=== PATIENT | male | born 1960 | race Two or more races ===

== ENCOUNTER 2024-04-13 18:56 | Inpatient (IN) | payer MEDICARE, OTHER ==
[~2024-04-13] VITALS: Ht 190.5 cm; Wt 88.5 kg
[2024-04-13 22:40] LABS: APPEARANCE,URINE CLEAR (CLEAR); BILIRUBIN,URINE 1+ (NEGATIVE); BLOOD, URINE TRACE-INTA Ery/uL (NEGATIVE); COLOR,URINE YELLOW (YELLOW); KETONES,URINE 1+ mg/dL (NEGATIVE); LEUKOCYTE ESTERASE ,URINE 1+ (NEGATIVE); NITRITE, URINE NEGATIVE (NEGATIVE); PH,URINE 5.5 (5.0-8.0); PROTEIN,URINE TRACE mg/dl (NEGATIVE); UGLUCOSE NEGATIVE (NEGATIVE)
[2024-04-13 22:45] LABS: BASOPHILS # (AUTO) 0.1 K/uL (0.0-0.2); BASOPHILS % (AUTO) 0.9 % (0.0-2.0); EOSINOPHILS # (AUTO) 0.1 K/uL (0.0-0.7); EOSINOPHILS % (AUTO) 0.7 % (0.0-6.0); HEMATOCRIT 44 % (39-51); HEMOGLOBIN 14.9 g/dL (13.5-17.5); LYMPHOCYTES # (AUTO) 3.5 K/uL (0.8-4.8); LYMPHOCYTES % (AUTO) 26.8 % (20.0-44.0); MEAN CORPUSCULAR HEMOGLOBIN 31 PG (26.0-33.0); MEAN CORPUSCULAR HGB CONC 34 g/dl (31.0-36.0); MEAN CORPUSCULAR VOLUME 92 fL (80-96); MONOCYTES # (AUTO) 1.9 K/uL (0.1-1.30); MONOCYTES % (AUTO) 14.7 % (2.0-12.0); NEUTROPHILS # (AUTO) 7.4 K/uL (1.8-8.9); NEUTROPHILS % (AUTO) 56.9 % (43.0-81.0); PLATELET COUNT (AUTO) 219 K/uL (150-450); RED BLOOD CELL COUNT(AUTO) 4.81 MIL/uL (4.5-6.0); RED CELL DISTRIBUTION WIDTH 14.1 % (11.5-15.0)
[2024-04-13 22:47] LABS: ALANINE AMINOTRANSFERASE 39 U/L (12-78); ALBUMIN 3.1 g/dL (3.4-5.0); ALCOHOL, BLOOD < 3 mg/dL (0-10); ALKALINE PHOSPHATASE 49 U/L (46-116); ASPARTATE AMINOTRANSFERASE 36 U/L (15-37); BILIRUBIN,TOTAL 0.7 mg/dL (0.2-1.0); CALCIUM, SERUM 9.2 mg/dL (8.5-10.1); CARBON DIOXIDE 27 mmol/L (21-32); CHLORIDE 97 mmol/L (98-107); GLUCOSE 124 mg/dL (74-106); POTASSIUM 4.2 mmol/L (3.5-5.1); SODIUM SERUM 136 mmol/L (136-145); TOTAL PROTEIN, SERUM 7.8 g/dL (6.4-8.2); UREA NITROGEN, BLOOD 23 mg/dL (7-18)
[2024-04-13 22:49] LABS: AMPHETAMINE, URINE NEGATIVE (NEGATIVE); BARBITURATE, URINE NEGATIVE (NEGATIVE); BENZODIAZEPINE, URINE NEGATIVE (NEGATIVE); CANNABINOID, URINE NEGATIVE (NEGATIVE); COCCAINE, URINE NEGATIVE (NEGATIVE); OPIATE, URINE NEGATIVE (NEGATIVE); PHENCYCLIDINE SCREEN,URINE NEGATIVE (NEGATIVE)
[2024-04-13 22:58] LABS: ACETAMINOPHEN <10 ug/ml (10-30); SALICYLATE 0.7 mg/dL (2.8-20.0)
[2024-04-13 23:37] LABS: LYMPHOCYTES % (MANUAL) 33 % (16-48); MONOCYTES % (MANUAL) 12 % (0-11.0); NEUTROPHILS % (MANUAL) 55 (42-76); PLATELET ESTIMATE ADEQUATE
[2024-04-13 23:55] LABS: ADD URINE CULTURE YES; BACTERIA,URINE None seen /HPF (None Seen)
[2024-04-13 23:56] LABS: MUCUS,URINE Few /LPF (None Seen); SQUAMOUS EPITHELIAL CELL,UR None Seen /HPF (None Seen)
[2024-04-14] MEDS ORDERED: SENN-301 PO (02:07)
[2024-04-14] MEDS ORDERED: BISA-79 PO (02:07)
[2024-04-14] MEDS ORDERED: ALBU2.5V13 NEB (02:07)
[2024-04-14] MEDS ORDERED: ACET-3117 PO (02:07)
[2024-04-14] MEDS ORDERED: DIVA500T2 PO (02:07)
[2024-04-14] MEDS ORDERED: MAGN200T5 PO (02:07)
[2024-04-14] MEDS ORDERED: MINE133E RC (02:07)
[2024-04-14] MEDS ORDERED: POLY119P PO (02:07)
[2024-04-14] MEDS ORDERED: PANT40TA49 PO (02:07)
[2024-04-14] MEDS ORDERED: METO50TA16 PO (02:07)
[2024-04-14] MEDS ORDERED: B-CO1TAB PO (02:07)
[2024-04-14] MEDS ORDERED: ATOR10TA PO (02:07)
[2024-04-14] MEDS ORDERED: MAG355OR18 PO (02:07)
[2024-04-14] MEDS ORDERED: CHOL400T11 PO (02:07)
[2024-04-14] MEDS ORDERED: HALO100A2 IM (02:07)
[2024-04-14] MEDS ORDERED: LOSA1TAB36 PO (02:07)
[2024-04-14] MEDS ORDERED: CETI10CA8 PO (02:07)
[2024-04-14] MEDS ORDERED: MAGN400O21 PO (02:07)
[2024-04-14 04:00] VITALS: BP 109/63; TEMP 98.5; O2SAT 100
[2024-04-14] MEDS ORDERED: QUETIAPINE FUMARATE 25 MG TABLET PO PRN (04:30)
[2024-04-14] MEDS ORDERED: MAG HYDROX/AL HYDROX/SIMETH 30 ML UDC PO PRN (04:30)
[2024-04-14] MEDS ORDERED: B CO1TAB6 PO (05:13)
[2024-04-14] MEDS: BLOOD SUGAR DIAGNOSTIC 1 EACH STRIP IN ONE (05:20)
[2024-04-14 08:00] VITALS: BP 130/82; TEMP 98; O2SAT 100
[2024-04-14] MEDS ORDERED: CHOL100043 PO (08:16)
[2024-04-14] MEDS ORDERED: ALBUTEROL FS 2.5 MG/0.5 ML VIAL.NEB NEB PRN (11:30)
[2024-04-14 16:00] VITALS: BP 137/96; TEMP 98; O2SAT 98
[2024-04-14] MEDS: METOPROLOL TARTRATE 50 MG TABLET PO SCH (16:26)
[2024-04-14 20:00] VITALS: BP 128/79; TEMP 98.1; O2SAT 99
[2024-04-14] MEDS: ATORVASTATIN 10 MG TABLET PO SCH (21:30)
[2024-04-14] MEDS: SENNOSIDES/DOCUSATE SODIUM 1 UDTAB TABLET PO SCH (21:30)
[2024-04-15 07:29] LABS: BASOPHILS # (AUTO) 0.1 K/uL (0.0-0.2); BASOPHILS % (AUTO) 0.7 % (0.0-2.0); EOSINOPHILS # (AUTO) 0.3 K/uL (0.0-0.7); EOSINOPHILS % (AUTO) 3.8 % (0.0-6.0); HEMATOCRIT 42 % (39-51); HEMOGLOBIN 14.1 g/dL (13.5-17.5); LYMPHOCYTES # (AUTO) 2.3 K/uL (0.8-4.8); LYMPHOCYTES % (AUTO) 29.5 % (20.0-44.0); MEAN CORPUSCULAR HEMOGLOBIN 31 PG (26.0-33.0); MEAN CORPUSCULAR HGB CONC 34 g/dl (31.0-36.0); MEAN CORPUSCULAR VOLUME 92 fL (80-96); MONOCYTES # (AUTO) 1.3 K/uL (0.1-1.30); MONOCYTES % (AUTO) 16.5 % (2.0-12.0); NEUTROPHILS # (AUTO) 3.8 K/uL (1.8-8.9); NEUTROPHILS % (AUTO) 49.5 % (43.0-81.0); PLATELET COUNT (AUTO) 203 K/uL (150-450); RED BLOOD CELL COUNT(AUTO) 4.57 MIL/uL (4.5-6.0); RED CELL DISTRIBUTION WIDTH 13.9 % (11.5-15.0); WHITE BLOOD COUNT (AUTO) 7.7 K/uL (4.3-11.0)
[2024-04-15 07:56] LABS: CALCIUM, SERUM 8.5 mg/dL (8.5-10.1); CREATININE 0.7 mg/dL (0.6-1.3); POTASSIUM 3.8 mmol/L (3.5-5.1)
[2024-04-15 08:00] VITALS: BP 112/62; TEMP 98.2; O2SAT 97
[2024-04-15 08:42] LABS: LYMPHOCYTES % (MANUAL) 30 % (16-48); NEUTROPHILS % (MANUAL) 54 (42-76)
[2024-04-15 08:43] LABS: EOSINOPHILS % (MANUAL) 3 % (0-4); MONOCYTES % (MANUAL) 13 % (0-11.0); PLATELET ESTIMATE ADEQUATE
[2024-04-15] MEDS: DIVALPROEX SODIUM 125 MG TABLET.DR PO SCH (08:48)
[2024-04-15] MEDS: PANTOPRAZOLE 40 MG TABLET.DR PO SCH (08:48)
[2024-04-15] MEDS: LOSARTAN/HCTZ 50-12.5MG/ 1 EA TABLET PO SCH (08:50)
[2024-04-15] MEDS ORDERED: MAGNESIUM HYDROXIDE 30 ML UDC PO SCH (09:00)
[2024-04-15 16:00] VITALS: BP 117/76; TEMP 98.6; O2SAT 95
[2024-04-15 20:44] VITALS: BP 106/73; TEMP 98.2; O2SAT 95
[2024-04-15] MEDS: risperiDONE 0.25 MG TABLET PO SCH (21:11)
[2024-04-15] MEDS: SENNOSIDES/DOCUSATE SODIUM 1 TAB TABLET PO SCH (21:11)
[2024-04-16 08:00] VITALS: BP 117/74; TEMP 98.7; O2SAT 98
[2024-04-16 16:00] VITALS: BP 98/68; TEMP 98.7; O2SAT 97
[2024-04-16 20:00] VITALS: BP 107/62; TEMP 98.1; O2SAT 100
[2024-04-16] MEDS: risperiDONE 0.25 MG TABLET PO SCH (21:06)
[2024-04-17 08:00] VITALS: BP 111/64; TEMP 98.7; O2SAT 98
[2024-04-17] MEDS: DOCUSATE SODIUM 250 MG CAPSULE PO SCH (11:02)
[2024-04-17 16:00] VITALS: BP 109/69; TEMP 98.7; O2SAT 98
[2024-04-17 20:42] VITALS: BP 109/65; TEMP 98.2; O2SAT 95
[2024-04-17] MEDS ORDERED: AMOX/CLAVULANATE 250 MG TABLET PO SCH (21:30)
[2024-04-17] MEDS: AMOX/CLAVULANATE 875 MG TABLET PO SCH (21:46)
[2024-04-18 08:00] VITALS: BP 110/63; TEMP 98.7; O2SAT 98
[2024-04-18] MEDS: BISACODYL (5 MG) 5 MG TABLET.DR PO PRN (11:10)
[2024-04-18] MEDS: MAGNESIUM HYDROXIDE 30 ML UDC PO PRN (13:10)
[2024-04-18] MEDS: DIVALPROEX SODIUM 125 MG TABLET.DR PO SCH (13:28)
[2024-04-18 16:00] VITALS: BP 112/63; TEMP 98.7; O2SAT 97
[2024-04-18 20:37] VITALS: BP 109/70; TEMP 98.6; O2SAT 94
[2024-04-19 08:00] VITALS: BP_SYST 129; BP_SYST 147; BP_DIAS 72; BP_DIAS 78; TEMP 97.6; TEMP 97.7; O2SAT 98
[2024-04-19 16:00] VITALS: BP 121/66; TEMP 98; O2SAT 100
[2024-04-19 20:00] VITALS: BP 119/63; TEMP 98.3; O2SAT 97
[2024-04-20] MEDS: ACETAMINOPHEN 325 MG TABLET PO PRN (02:00)
[2024-04-20 08:00] VITALS: BP 112/93; TEMP 98; O2SAT 94
[2024-04-20 16:00] VITALS: BP 105/62; TEMP 98; O2SAT 100
[2024-04-20 20:00] VITALS: BP 119/84; TEMP 98.3; O2SAT 95
[2024-04-21 08:00] VITALS: BP 115/73; TEMP 97.8; O2SAT 97
[2024-04-21 16:21] VITALS: BP 106/69; TEMP 97.8; O2SAT 95
[2024-04-21 20:00] VITALS: BP 105/60; TEMP 98.2; O2SAT 96
[2024-04-22 08:00] VITALS: BP 123/70; TEMP 98.2; O2SAT 99
[2024-04-22 16:10] VITALS: BP 101/64; TEMP 98.2; O2SAT 95
[2024-04-22 20:43] VITALS: BP 124/77; TEMP 98.2; O2SAT 95
[2024-04-22] MEDS: DIVALPROEX SODIUM 125 MG TABLET.DR PO SCH (21:34)
[2024-04-23 08:00] VITALS: BP 114/89; TEMP 98.2; O2SAT 95
[2024-04-23 16:00] VITALS: BP 104/62; TEMP 98.6; O2SAT 95
[2024-04-23 20:00] VITALS: BP 119/82; TEMP 98.4; O2SAT 95
[2024-04-23 21:24] VITALS: BP 119/82; TEMP 98.4; O2SAT 95
[2024-04-24] MEDS: ZOLPIDEM TARTRATE 5 MG TABLET PO PRN (00:31)
[2024-04-24 08:00] VITALS: BP 109/67; TEMP 98.7; O2SAT 96
[2024-04-24 16:00] VITALS: BP 97/77; TEMP 98.1; O2SAT 96
[2024-04-24 21:18] VITALS: BP 103/70; TEMP 98.4; O2SAT 95
[2024-04-25 08:00] VITALS: BP 125/79; TEMP 98.7; O2SAT 97
[2024-04-25] MEDS: risperiDONE 0.25 MG TABLET PO SCH (09:26)
[2024-04-25 16:00] VITALS: BP 128/77; TEMP 97.8; O2SAT 98
[2024-04-25 20:00] VITALS: BP 119/81; TEMP 98; O2SAT 96
[2024-04-26 08:00] VITALS: BP 121/74; TEMP 97.5; O2SAT 99
[2024-04-26 09:00] VITALS: BP 121/74
[2024-04-26] MEDS: Z GUARD REMEDY 4 OZ OINT TP PRN (09:00)
== END 2024-04-26 16:00 | DRG 885 ==
LOC: ER 19:09 → GPS 04-14 01:40
PROVIDERS: ADMIT Psychiatry & Neurology Psychiatry; ATTEND Internal Medicine
DX: F31.9 Bipolar disorder, unspecified (principal); I69.354 Hemiplegia and hemiparesis following cerebral infarction affecting left non-dominant side; F03.911 Unspecified dementia, unspecified severity, with agitation; F03.94 Unspecified dementia, unspecified severity, with anxiety; F03.918 Unspecified dementia, unspecified severity, with other behavioral disturbance; Z87.820 Personal history of traumatic brain injury; Z79.899 Other long term (current) drug therapy; E78.5 Hyperlipidemia, unspecified; I10 Essential (primary) hypertension; M62.81 Muscle weakness (generalized); F10.11 Alcohol abuse, in remission; G47.00 Insomnia, unspecified
CPT/HCPCS: 36415; 80048-TC; 80053-TC; 80061-TC; 80164-TC; 81001; 82962-TC; 85025-TC; 87081-TC; 87086-TC; G0480

== ENCOUNTER 2024-08-23 18:48 | Inpatient (IN) | payer MEDICARE, OTHER ==
[~2024-08-23] VITALS: Ht 190.5 cm; Wt 97.5 kg
[~2024-08-23 18:48] MED LIST: ACET-3117 PO; ALBU2.5V13 NEB; ATOR10TA PO; B CO1TAB6 PO; BISA-79 PO; CETI10CA8 PO; CHOL100043 PO; DIVA500T2 PO; LOSA1TAB36 PO; MAG355OR18 PO; MAGN200T5 PO; MAGN400O21 PO; METO50TA16 PO; MINE133E RC; PANT40TA49 PO; POLY119P PO; SENN-301 PO
[2024-08-23 19:32] LABS: BASOPHILS # (AUTO) 0.1 K/uL (0.0-0.2); EOSINOPHILS # (AUTO) 0.1 K/uL (0.0-0.7); EOSINOPHILS % (AUTO) 1.2 % (0.0-6.0); HEMATOCRIT 43 % (39-51); HEMOGLOBIN 14.3 g/dL (13.5-17.5); LYMPHOCYTES # (AUTO) 2.2 K/uL (0.8-4.8); LYMPHOCYTES % (AUTO) 26.4 % (20.0-44.0); MEAN CORPUSCULAR HEMOGLOBIN 31 PG (26.0-33.0); MEAN CORPUSCULAR HGB CONC 34 g/dl (31.0-36.0); MEAN CORPUSCULAR VOLUME 92 fL (80-96); MONOCYTES # (AUTO) 1.1 K/uL (0.1-1.30); MONOCYTES % (AUTO) 13.6 % (2.0-12.0); NEUTROPHILS # (AUTO) 4.9 K/uL (1.8-8.9); NEUTROPHILS % (AUTO) 57.8 % (43.0-81.0); PLATELET COUNT (AUTO) 212 K/uL (150-450); RED CELL DISTRIBUTION WIDTH 13.9 % (11.5-15.0); WHITE BLOOD COUNT (AUTO) 8.4 K/uL (4.3-11.0)
[2024-08-23 19:40] LABS: CARBON DIOXIDE 28 mmol/L (21-32); CHLORIDE 107 mmol/L (98-107); CREATININE 0.9 mg/dL (0.6-1.3); GLUCOSE 134 mg/dL (74-106); POTASSIUM 4.1 mmol/L (3.5-5.1); SODIUM SERUM 140 mmol/L (136-145); UREA NITROGEN, BLOOD 22 mg/dL (7-18)
[2024-08-23 19:46] LABS: ACETAMINOPHEN <10 ug/ml (10-30); ALANINE AMINOTRANSFERASE 17 U/L (12-78); ALBUMIN 3.4 g/dL (3.4-5.0); ALCOHOL, BLOOD < 3 mg/dL (0-10); ALKALINE PHOSPHATASE 47 U/L (46-116); ASPARTATE AMINOTRANSFERASE 11 U/L (15-37); BILIRUBIN,DIRECT 0.1 mg/dL (0.0-0.2); BILIRUBIN,TOTAL 0.4 mg/dL (0.2-1.0); TOTAL PROTEIN, SERUM 7.5 g/dL (6.4-8.2)
[2024-08-23 20:04] LABS: APPEARANCE,URINE CLEAR (CLEAR); BILIRUBIN,URINE NEGATIVE (NEGATIVE); BLOOD, URINE TRACE-INTA Ery/uL (NEGATIVE); COLOR,URINE YELLOW (YELLOW); KETONES,URINE NEGATIVE (NEGATIVE); LEUKOCYTE ESTERASE ,URINE TRACE (NEGATIVE); NITRITE, URINE NEGATIVE (NEGATIVE); PROTEIN,URINE NEGATIVE (NEGATIVE); UGLUCOSE NEGATIVE (NEGATIVE); UROBILINOGEN,URINE 0.2 EU/dL (0.2)
[2024-08-23 20:09] VITALS: O2SAT 95
[2024-08-23 20:14] LABS: ADD URINE CULTURE YES; BACTERIA,URINE Few /HPF (None Seen); SQUAMOUS EPITHELIAL CELL,UR Few /HPF (None Seen)
[2024-08-23 20:19] LABS: AMPHETAMINE, URINE NEGATIVE (NEGATIVE); BARBITURATE, URINE NEGATIVE (NEGATIVE); BENZODIAZEPINE, URINE NEGATIVE (NEGATIVE); CANNABINOID, URINE NEGATIVE (NEGATIVE); COCCAINE, URINE NEGATIVE (NEGATIVE); OPIATE, URINE NEGATIVE (NEGATIVE); PHENCYCLIDINE SCREEN,URINE NEGATIVE (NEGATIVE)
[2024-08-23] MEDS: CEPHALEXIN MONOHYDRATE 500 MG CAPSULE PO ONE (20:37)
[2024-08-23] MEDS ORDERED: MINERAL OIL 133 ML (PYXIS) 1 EA ENEMA RC PRN (21:30)
[2024-08-23] MEDS ORDERED: Medication Not On Formulary EA (Acetaminophen 650 MG) PO PRN (21:30)
[2024-08-23] MEDS ORDERED: MAG HYDROX/AL HYDROX/SIMETH 30 ML UDC PO PRN (21:30)
[2024-08-23] MEDS ORDERED: BISACODYL (5 MG) 5 MG TABLET.DR PO PRN (21:30)
[2024-08-23] MEDS ORDERED: ALBUTEROL SULFATE 8 GM HFA.AER.AD IH PRN (21:30)
[2024-08-23] MEDS ORDERED: POLYETHYLENE GLYCOL 17 GM PO SCH (22:00)
[2024-08-24] MEDS: SENNOSIDES/DOCUSATE SODIUM 1 UDTAB TABLET PO SCH
[2024-08-24] MEDS: ATORVASTATIN 10 MG TABLET PO SCH
[2024-08-24] MEDS ORDERED: ACETAMINOPHEN 650 MG/20.3 ML UDC PO PRN (01:00)
[2024-08-24] MEDS ORDERED: ZOLPIDEM TARTRATE 5 MG TABLET PO PRN ×2 (01:00)
[2024-08-24] MEDS ORDERED: ACETAMINOPHEN 325 MG TABLET PO PRN ×2 (01:00)
[2024-08-24] MEDS ORDERED: MAG HYDROX/AL HYDROX/SIMETH 30 ML UDC PO PRN (01:00)
[2024-08-24] MEDS: BLOOD SUGAR DIAGNOSTIC 1 EACH STRIP IN ONE (01:14)
[2024-08-24 01:22] VITALS: BP 108/80; TEMP 98.3; O2SAT 96
[2024-08-24 08:00] VITALS: BP 104/60; TEMP 98.6; O2SAT 95
[2024-08-24] MEDS ORDERED: ALBUTEROL FS 2.5 MG/0.5 ML VIAL.NEB NEB PRN (08:00)
[2024-08-24] MEDS: LOSARTAN/HCTZ 50-12.5MG/ 1 EA TABLET PO SCH (08:17)
[2024-08-24] MEDS: MAGNESIUM HYDROXIDE 30 ML UDC PO SCH (08:21)
[2024-08-24] MEDS: METOPROLOL TARTRATE 50 MG TABLET PO SCH (08:21)
[2024-08-24] MEDS: CHOLECALCIFEROL (VITAMIN D 3) 400 UNIT TABLET PO SCH (08:24)
[2024-08-24] MEDS: cetrizine 10 MG TABLET PO SCH (08:24)
[2024-08-24] MEDS: MAGNESIUM OXIDE 400 MG TABLET PO SCH (08:24)
[2024-08-24] MEDS: CEPHALEXIN MONOHYDRATE 500 MG CAPSULE PO SCH (08:24)
[2024-08-24] MEDS: PANTOPRAZOLE 40 MG TABLET.DR PO SCH (08:25)
[2024-08-24] MEDS ORDERED: SENN-261 PO (08:48)
[2024-08-24] MEDS ORDERED: DOCU250C14 PO (08:48)
[2024-08-24] MEDS ORDERED: ACET325T53 PO (08:48)
[2024-08-24] MEDS ORDERED: MAG-151 PO (08:48)
[2024-08-24] MEDS ORDERED: DIVA125T32 PO (08:48)
[2024-08-24] MEDS ORDERED: RISP0.5T5 PO (08:48)
[2024-08-24] MEDS ORDERED: Medication Not On Formulary EA (Magnesium (Magnesium Oxide) 400 MG) PO SCH (09:00)
[2024-08-24] MEDS ORDERED: Medication Not On Formulary EA (Cholecalciferol (Vitamin D3) (Vitamin D3) 1,000 UNIT) PO SCH (09:00)
[2024-08-24] MEDS: DIVALPROEX SODIUM 125 MG TABLET.DR PO SCH (15:48)
[2024-08-24 16:00] VITALS: BP 105/61; TEMP 98; O2SAT 98
[2024-08-24 20:00] VITALS: BP 105/64; TEMP 98.3; O2SAT 98
[2024-08-24] MEDS: POLYETHYLENE GLYCOL 3350 17 GM POWD.PACK PO SCH (21:36)
[2024-08-24] MEDS: SENNOSIDES/DOCUSATE SODIUM 1 TAB TABLET PO SCH (21:36)
[2024-08-25 07:15] LABS: BASOPHILS # (AUTO) 0.1 K/uL (0.0-0.2); BASOPHILS % (AUTO) 0.6 % (0.0-2.0); EOSINOPHILS # (AUTO) 0.2 K/uL (0.0-0.7); EOSINOPHILS % (AUTO) 2.5 % (0.0-6.0); HEMATOCRIT 43 % (39-51); HEMOGLOBIN 14.3 g/dL (13.5-17.5); LYMPHOCYTES # (AUTO) 2.3 K/uL (0.8-4.8); MEAN CORPUSCULAR HEMOGLOBIN 31 PG (26.0-33.0); MEAN CORPUSCULAR HGB CONC 34 g/dl (31.0-36.0); MEAN CORPUSCULAR VOLUME 94 fL (80-96); MONOCYTES # (AUTO) 1.3 K/uL (0.1-1.30); MONOCYTES % (AUTO) 15.5 % (2.0-12.0); NEUTROPHILS # (AUTO) 4.6 K/uL (1.8-8.9); NEUTROPHILS % (AUTO) 54.4 % (43.0-81.0); PLATELET COUNT (AUTO) 194 K/uL (150-450); RED BLOOD CELL COUNT(AUTO) 4.55 MIL/uL (4.5-6.0); RED CELL DISTRIBUTION WIDTH 13.5 % (11.5-15.0); WHITE BLOOD COUNT (AUTO) 8.4 K/uL (4.3-11.0)
[2024-08-25 07:42] LABS: CALCIUM, SERUM 8.6 mg/dL (8.5-10.1); CREATININE 0.9 mg/dL (0.6-1.3)
[2024-08-25 08:00] VITALS: BP 112/70; TEMP 98.1; O2SAT 99
[2024-08-25] MEDS: DIVALPROEX SODIUM 125 MG TABLET.DR PO SCH (14:10)
[2024-08-25 16:00] VITALS: BP 100/60; TEMP 98; O2SAT 94
[2024-08-25 21:08] VITALS: BP 115/68; TEMP 98; O2SAT 96
[2024-08-26 08:00] VITALS: BP 108/74; TEMP 97.9; O2SAT 96
[2024-08-26 16:00] VITALS: BP 101/60; TEMP 98.3; O2SAT 95
[2024-08-26] MEDS: MAGNESIUM HYDROXIDE 30 ML UDC PO PRN (21:21)
[2024-08-26 21:26] VITALS: BP 102/67; TEMP 98.3; O2SAT 96
[2024-08-27 08:00] VITALS: BP 131/76; TEMP 98.7; O2SAT 96
[2024-08-27 16:00] VITALS: BP 116/64; TEMP 98.7; O2SAT 96
[2024-08-27 21:13] VITALS: BP 126/66; TEMP 98.7; O2SAT 96
[2024-08-28 08:00] VITALS: BP 112/73; TEMP 98.7; O2SAT 96
[2024-08-28 16:00] VITALS: BP 114/82; TEMP 98.7; O2SAT 98
[2024-08-28 20:40] VITALS: BP 106/67; TEMP 97.7; O2SAT 95
[2024-08-29 08:00] VITALS: BP 114/76; TEMP 97.9; O2SAT 94
[2024-08-29 16:00] VITALS: BP 99/59; TEMP 97.8; O2SAT 94
[2024-08-29 20:00] VITALS: BP 114/61; TEMP 98; O2SAT 94
[2024-08-29] MEDS: DIVALPROEX SODIUM 125 MG TABLET.DR PO SCH (21:13)
[2024-08-30 08:00] VITALS: BP 116/80; TEMP 97.5; O2SAT 98
[2024-08-30] MEDS: CHOLECALCIFEROL 1,000 UNIT TABLET (VIT D3) PO SCH (08:14)
[2024-08-30 16:00] VITALS: BP 112/65; TEMP 97.9; O2SAT 98
[2024-08-30 20:00] VITALS: BP 108/61; TEMP 98.2; O2SAT 95
[2024-08-31 08:00] VITALS: BP 116/78; TEMP 97.7; O2SAT 95
[2024-08-31 16:00] VITALS: BP 104/65; TEMP 98.4; O2SAT 96
[2024-08-31 20:00] VITALS: BP 109/67; TEMP 98.1; O2SAT 95
[2024-08-31] MEDS: DIVALPROEX SODIUM 250 MG TABLET.DR PO ONE (20:51)
[2024-08-31] MEDS: DIVALPROEX SODIUM 125 MG TABLET.DR PO ONE (21:07)
[2024-09-01 08:00] VITALS: BP 118/67; TEMP 97.8; O2SAT 95
[2024-09-01 16:00] VITALS: BP 100/58; TEMP 98.2; O2SAT 97
[2024-09-01 20:43] VITALS: BP 101/53; TEMP 98.2; O2SAT 97
[2024-09-02 07:58] VITALS: BP 126/74; TEMP 97.8; O2SAT 96
[2024-09-02] MEDS: DIVALPROEX SODIUM 125 MG TABLET.DR PO SCH (14:04)
[2024-09-02 16:00] VITALS: BP 123/78; TEMP 97.8; O2SAT 98
[2024-09-02 20:42] VITALS: BP 120/74; TEMP 98; O2SAT 97
[2024-09-03 08:00] VITALS: BP 125/87; TEMP 98.7; O2SAT 96
[2024-09-03 16:00] VITALS: BP 115/68; TEMP 98; O2SAT 94
[2024-09-03 20:43] VITALS: BP 120/82; TEMP 98.7; O2SAT 96
[2024-09-04 08:00] VITALS: BP 114/70; TEMP 98.7; O2SAT 96
[2024-09-04 16:00] VITALS: BP 105/60; TEMP 97.9; O2SAT 97
[2024-09-04 20:48] VITALS: BP 100/72; TEMP 98
[2024-09-05 08:00] VITALS: BP 131/76; TEMP 98.6; O2SAT 94
[2024-09-05 16:00] VITALS: BP 98/53; TEMP 98.7; O2SAT 96
[2024-09-05 20:00] VITALS: BP 112/75; TEMP 98.4; O2SAT 96
[2024-09-06 08:00] VITALS: BP 124/82; TEMP 98.3; O2SAT 95
[2024-09-06 08:24] VITALS: BP 124/82
== END 2024-09-06 14:25 | DRG 885 ==
LOC: ER 18:52 → GPS 23:51
PROVIDERS: ADMIT Psychiatry & Neurology Psychiatry; ATTEND Nurse Practitioner Acute Care
DX: F31.9 Bipolar disorder, unspecified (principal); F01.54 Vascular dementia, unspecified severity, with anxiety; Z93.6 Other artificial openings of urinary tract status; F01.53 Vascular dementia, unspecified severity, with mood disturbance; F01.52 Vascular dementia, unspecified severity, with psychotic disturbance; G81.94 Hemiplegia, unspecified affecting left nondominant side; G93.49 Other encephalopathy; F29 Unspecified psychosis not due to a substance or known physiological condition; K21.9 Gastro-esophageal reflux disease without esophagitis; E78.5 Hyperlipidemia, unspecified; N40.0 Benign prostatic hyperplasia without lower urinary tract symptoms; Z87.820 Personal history of traumatic brain injury; M81.0 Age-related osteoporosis without current pathological fracture; I10 Essential (primary) hypertension; Z79.51 Long term (current) use of inhaled steroids; Z79.899 Other long term (current) drug therapy; F41.9 Anxiety disorder, unspecified
CPT/HCPCS: 36415; 80048-TC; 80061-TC; 80076-TC; 80164-TC; 81001; 82962-TC; 85025-TC; 87081-TC; 87086-TC; 97110-TC; 97116-TC; 97530-TC; 98960; G0480